=== PATIENT | female | born 1995 | race Caucasian/White ===

== ENCOUNTER 2018-11-22 19:34 | Emergency (ER) | payer SELFPAY ==
[2018-11-22 19:43] VITALS: BP 136/83
[2018-11-22 20:28] LABS: CHLORIDE,CL 100 mmol/L (98-107); SODIUM,NA 137 mmol/L (136-145)
--- NOTE | 2018-11-22 20:32 | EDM.PDOC ---
ED HPI GENERAL MEDICAL PROBLEM - General Chief Complaint: Headache Stated Complaint: HEADACHE Time Seen by Provider: 11/22/18 20:21 Source of Information: Reports: Patient History Limitations: Reports: No Limitations - History of Present Illness INITIAL COMMENTS - FREE TEXT/NARRATIVE: Patient comes to ER with complaint of headache that has been present for five days. Overall unchanged in severity this entire time. Improves slightly when laying down. OTC meds have not helped (Tylenol/NSAIDS). No history of migraines/similar headaches in past. Increased fatigue over same timeframe. Works for [employer]. Hx of HTN during . Asthma as child (currently has no issues). Has had intermittent low grade temp of 100. Clear runny nose on Thursday, 2 days ago. Denies vision change/ear pain/sinus pain. No adenopathy. No sore throat. Denies cough/wheezing/SOB. Denies other pain complaints. No GI changes such as nausea/emesis/bowel changes. No urinary complaints. No focal weakness/numbness/confusion/dizziness. No other complaints at this time. Headache is frontal in location, also right parietal. No neck tightness. No history of injury Pain is 6/10 Treatments ERGONOMIST: Reports: NSAIDS Anterior Frontal Forehead Pain Score (Numeric/FACES): 6 - Related Data Allergies Allergy/AdvReac Type Severity Reaction Status Date / Time acetaminophen [From [place]] Allergy Respiratory Verified 11/22/18 19:45 Distress bee venom protein (honey bee) Allergy Anaphylactic Verified 11/22/18 19:45 Shock hydrocodone [From [place]] Allergy Respiratory Verified 11/22/18 19:45 Distress Iodinated Contrast- Oral and Allergy Respiratory Verified 11/22/18 19:45 IV Dye Distress latex Allergy Rash Verified 11/22/18 19:45 pineapple Allergy Anaphylactic Verified 11/22/18 19:45 Shock Home Meds: Home Meds Acetaminophen [Pain Reliever] 325 mg PO Q4HR 11/22/18 [History] EPINEPHrine [Epipen] 0.3 mg IM ASDIRECTED PRN 11/22/18 [History] Levonorgestrel [Mirena] 1 each IY ASDIRECTED 11/22/18 [History] Past Medical History Cardiovascular History: Reports: Hypertension (during ) Respiratory History: Reports: Asthma Endocrine/Metabolic History: Reports: Obesity/BMI 30+ Social & Family History - Tobacco Use Smoking Status *Q: Never Smoker Second Hand Smoke Exposure: No - Caffeine Use Caffeine Use: Reports: Coffee - Alcohol Use Alcohol Use History: No - Recreational Drug Use Recreational Drug Use: No Drug Use in Last 12 Months: No ED ROS GENERAL - Review of Systems Review Of Systems: ROS reveals no pertinent complaints other than HPI. - Physical Exam Exam: See Below Exam Limited By: No Limitations General Appearance: Alert, WD/WN, Obese, Other (appears fatigued) Eye Exam: Bilateral Eye: EOMI, PERRL Ears: Normal External Exam, Normal Canal, Hearing Grossly Normal, Normal TMs Nose: Normal Inspection Throat/Mouth: Normal Inspection, Normal Lips, Normal Voice, No Airway Compromise Head Exam: Atraumatic, Normocephalic Neck: Normal Inspection, Supple, Non-Tender, Full Range of Motion. No: Lymphadenopathy (L), Lymphadenopathy (R) Respiratory/Chest: No Respiratory Distress, Lungs Clear, Normal Breath Sounds, No Accessory Muscle Use Cardiovascular: Regular Rate, Rhythm, No Murmur GI/Abdominal: Normal Bowel Sounds, Soft, Non-Tender, No Distention (Female) Exam: Deferred Rectal (Female) Exam: Deferred Neuro Exam (Abbreviated): Alert, Oriented, CN II-XII Intact, Normal Cognition, Normal Gait, No Motor/Sensory Deficits Back Exam: Normal Inspection Extremities: Normal Inspection, Normal Range of Motion, Non-Tender, Normal Capillary Refill Psychiatric: Normal Affect, Normal Mood Skin Exam: Warm, Dry, Intact, Normal Color Course - Vital Signs Last Recorded V/S: Last Vital Signs Temp 36.2 C 11/22/18 19:34 Pulse 88 11/22/18 19:34 Resp 16 11/22/18 19:34 BP 136/83 11/22/18 19:34 Pulse Ox 100 11/22/18 19:34 - Orders/Labs/Meds Orders: Active Orders 24 hr Category Date Time Status Head wo Cont [CT] Stat Exams 11/22/18 20:04 Ordered Labs: Laboratory Tests 11/22/18 11/22/18 11/22/18 Range/Units 20:04 20:04 20:04 WBC 14.8 H (4.0-10.2) K/uL RBC 5.40 H (3.77-5.09) M/uL Hgb 14.9 (11.7-15.5) g/dL Hct 44.4 (34.0-46.0) % MCV 82.2 L (84.0-98.0) fL MCH 27.6 L (28.2-33.3) pg MCHC 33.6 (31.7-36.0) g/dL RDW 13.6 (11.2-14.1) % Plt Count 359 H (150-350) K/uL Neut % (Auto) 77.1 (45.0-80.0) % Lymph % (Auto) 16.9 (10.0-50.0) % [place] % (Auto) 4.0 (2.0-14.0) % Eos % (Auto) 1.7 (0.0-5.0) % Baso % (Auto) 0.3 (0.0-2.0) % Neut # (Auto) 11.44 H (1.40-7.00) K/uL Lymph # (Auto) 2.51 (0.50-3.50) K/uL [place] # (Auto) 0.59 (0.00-1.00) K/uL Eos # (Auto) 0.25 (0.00-0.50) K/uL Baso # (Auto) 0.05 (0.00-0.20) K/uL Sodium 137 (136-145) mmol/L Potassium 4.0 (3.5-5.1) mmol/L Chloride 100 (98-107) mmol/L Carbon Dioxide 28.5 (21.0-32.0) mmol/L BUN 9 (7-18) mg/dL Creatinine 0.78 (0.51-1.17) mg/dL Est Cr Clr Drug Dosing 109.08 mL/min Estimated GFR (MDRD) > 60 mL/min Glucose 97 (74-106) mg/dL Calcium 9.4 (8.5-10.1) mg/dL Magnesium (1.8-2.4) mg/dL Total Bilirubin 0.3 (0.2-1.0) mg/dL AST 11 L (15-37) U/L ALT 29 (12-78) U/L Alkaline Phosphatase 71 (46-116) IU/L Total Protein 8.5 H (6.4-8.2) g/dL Albumin 3.7 (3.4-5.0) g/dL Specimen Type Urinvoid Urine Color Yellow Urine Appearance Clear Urine pH 7.0 (5.0-9.0) Ur Specific [place] 1.025 (1.005-1.030) Urine Protein Negative (NEGATIVE) mg/dL Urine Glucose (UA) Negative (NEGATIVE) mg/dL Urine Ketones Negative (NEGATIVE) mg/dL Urine Occult Blood Negative (NEGATIVE) Urine Nitrite Negative (NEGATIVE) Urine Bilirubin Negative (NEGATIVE) Urine Urobilinogen 1.0 (0.2-1.0) E.U./dL Ur Leukocyte Esterase Negative (NEGATIVE) Urine RBC 0-5 /HPF Urine WBC 0-5 /HPF Ur Epithelial Cells Rare /LPF Urine Bacteria Rare (NONE TO FEW) /HPF 11/22/18 Range/Units 20:04 WBC (4.0-10.2) K/uL RBC (3.77-5.09) M/uL Hgb (11.7-15.5) g/dL Hct (34.0-46.0) % MCV (84.0-98.0) fL MCH (28.2-33.3) pg MCHC (31.7-36.0) g/dL RDW (11.2-14.1) % Plt Count (150-350) K/uL Neut % (Auto) (45.0-80.0) % Lymph % (Auto) (10.0-50.0) % [place] % (Auto) (2.0-14.0) % Eos % (Auto) (0.0-5.0) % Baso % (Auto) (0.0-2.0) % Neut # (Auto) (1.40-7.00) K/uL Lymph # (Auto) (0.50-3.50) K/uL [place] # (Auto) (0.00-1.00) K/uL Eos # (Auto) (0.00-0.50) K/uL Baso # (Auto) (0.00-0.20) K/uL Sodium (136-145) mmol/L Potassium (3.5-5.1) mmol/L Chloride (98-107) mmol/L Carbon Dioxide (21.0-32.0) mmol/L BUN (7-18) mg/dL Creatinine (0.51-1.17) mg/dL Est Cr Clr Drug Dosing mL/min Estimated GFR (MDRD) mL/min Glucose (74-106) mg/dL Calcium (8.5-10.1) mg/dL Magnesium 1.7 L (1.8-2.4) mg/dL Total Bilirubin (0.2-1.0) mg/dL AST (15-37) U/L ALT (12-78) U/L Alkaline Phosphatase (46-116) IU/L Total Protein (6.4-8.2) g/dL Albumin (3.4-5.0) g/dL Specimen Type Urine Color Urine Appearance Urine pH (5.0-9.0) Ur Specific [place] (1.005-1.030) Urine Protein (NEGATIVE) mg/dL Urine Glucose (UA) (NEGATIVE) mg/dL Urine Ketones (NEGATIVE) mg/dL Urine Occult Blood (NEGATIVE) Urine Nitrite (NEGATIVE) Urine Bilirubin (NEGATIVE) Urine Urobilinogen (0.2-1.0) E.U./dL Ur Leukocyte Esterase (NEGATIVE) Urine RBC /HPF Urine WBC /HPF Ur Epithelial Cells /LPF Urine Bacteria (NONE TO FEW) /HPF Meds: Medications Discontinued Medications Generic Name Dose Route Start Last Admin Trade Name Freq PRN Reason Stop Dose Admin Ketorolac Tromethamine 60 mg 11/22/18 20:42 11/22/18 20:53 Toradol IM 11/22/18 20:43 60 mg ONETIME ONE Administration Magnesium Oxide 800 mg 11/22/18 20:35 11/22/18 21:09 Magnesium Oxide PO 11/22/18 20:36 800 mg ONETIME ONE Administration Oxycodone/Acetaminophen 2 tab 11/22/18 21:17 Percocet 325-5 Mg PO 11/22/18 21:18 ONETIME ONE Sumatriptan Succinate 6 mg 11/22/18 20:42 11/22/18 20:52 Imitrex SUBCUT 11/22/18 20:43 6 mg ONETIME ONE Administration - Radiology Interpretation CT Results Date: 11/22/18 CT Results Time: 20:41 (Negative for acute change) - Re-Assessments/Exams Free Text/Narrative Re-Assessment/Exam: 11/22/18 20:44 Noted to have WBC 14.8 Chemistry showed low magnesium. UA clear. CT of head clear. Given low grade temp,fatigue, and rhinorrhea, suspect headache is of viral etiology. Low magnesium has also been linked to headaches. Magnesium PO given in ER. Results of testing discussed with patient. Differential also includes cluster headache (although pain is not completely unilateral). Toradol IM given. Will try Sumatriptan as well with hopes of relieving some of patient's pain complaint. Plan at this time is to take patient off of work for tonight. She is to observe for any further changes and follow up if headache has not improved within 48 hours. Precautions reviewed. To return to ER/Clinic if worsening symptoms or neuro changes are noted. Free Text/Narrative Re-Assessment/Exam: 11/22/18 21:21 Pain complaint did improve s/p Imitrex and Toradol. Departure - Departure Time of Disposition: 21:18 Disposition: Home, Self-Care 01 Condition: Good Clinical Impression: Hypomagnesemia Headache Qualifiers: Headache type: unspecified Headache chronicity pattern: acute headache Intractability: not intractable Qualified Code(s): R51 - Headache - Discharge Information *PRESCRIPTION DRUG MONITORING PROGRAM REVIEWED*: Not Applicable *COPY OF PRESCRIPTION DRUG MONITORING REPORT IN PATIENT YAMILKA: Not Applicable Instructions: General Headache Without Cause, [id number] Forms: ED Department Discharge Additional Instructions: Observe for changes. Return to ER for re-evaluation if you notice worsening symptoms, especially any neurologic changes such as one sided weakness/visual changes/numbness. Return for recheck at clinic Thursday if no overall improvement noted. Start taking Magnesium supplements as you are low. Magnesium Glycinate is a better formulation than Magnesium Oxide, but will not likely be available locally. 250-500mg daily. Another way to improve Magnesium levels is to take baths in Epsom Salts ( Magnesium Salts) Take Percocet when you get home tonight. If you take only one of the two tablets given, you can take the other in 6 hours. - My Orders Last 24 Hours: My Active Orders 11/22/18 20:04 Head wo Cont [CT] Stat - Assessment/Plan Last 24 Hours: My Active Orders 11/22/18 20:04 Head wo Cont [CT] Stat
[2018-11-22] MEDS ORDERED: Magnesium Oxide 400 MG Tab PO ONE (20:35)
[2018-11-22] MEDS ORDERED: SUMAtriptan 6 MG/0.5 ML SDV SUBCUT ONE (20:42)
[2018-11-22] MEDS ORDERED: Ketorolac 60 MG/2 ML SDV IM ONE (20:42)
[2018-11-22] MEDS ORDERED: Acetaminophen/oxyCODONE 325-5 MG Tab PO ONE (21:17)
== END 2018-11-22 21:33 | disposition home or self-care (01) ==
LOC: LL.ED 19:34
DX: E83.42 Hypomagnesemia (principal); R51 Headache; I10 Essential (primary) hypertension; J45.909 Unspecified asthma, uncomplicated; Z88.8 Allergy status to other drugs, medicaments and biological substances; Z91.030 Bee allergy status; Z91.040 Latex allergy status; Z79.899 Other long term (current) drug therapy
CPT/HCPCS: 36415; 70450; 80053; 81001; 83735; 85025; 96372; 99284-25; A9270-GY; J1885; J3030